=== PATIENT | female | born 1975 | race American Indian/Alaskan Native ===

== ENCOUNTER 2021-08-27 21:14 | Emergency (ER) | payer OTHER ==
[2021-08-28] MEDS ORDERED: hydrALAZINE 25 MG TAB PO ONE (00:58)
[2021-08-28 01:37] LABS: Hematocrit 39.1 % (30.3-42.9); Hemoglobin 12.7 gm/dl (10.1-14.3); Mean Corpuscular HGB Conc 33 % (30-34); Mean Corpuscular Volume 89 fl (79-97); Platelet Count 286 K/mm3 (140-440); Red Blood Count 4.38 M/mm3 (3.65-5.03); Red Cell Distribution Width 14.9 % (13.2-15.2)
[2021-08-28 01:41] LABS: Blood Urea Nitrogen 9 mg/dL (7-17); Hemolysis Index 13
--- NOTE | 2021-08-28 01:42 | XRay Report ---
CHEST 2 VIEWS INDICATION: edema; X3-4 DAYS. COMPARISON: None FINDINGS: SUPPORT DEVICES: None. HEART: Within normal limits. LUNGS/PLEURA: No acute air space or interstitial disease. No pneumothorax. ADDITIONAL FINDINGS: None. IMPRESSION: 1. No acute findings. Signer Name: Sukhi Singh MD Signed: 08/28/2021 1:37 AM Workstation Name: [id number]
[2021-08-28 01:53] LABS: BUN/Creatinine Ratio 18
--- NOTE | 2021-08-28 02:18 | Emergency Department Report ---
ED General Adult HPI - General Chief complaint: Extremity Injury, Lower Stated complaint: NUMBNESS/SWELLING Time Seen by Provider: 08/28/21 00:50 Source: patient Mode of arrival: Ambulatory Limitations: No Limitations - History of Present Illness Initial comments: Patient presents with difficulty breathing. For the last week she has had shortness of breath. She describes orthopnea. She believes that her feet have also been puffy and swollen. The swelling in the feet seem to worsen and then went down. It is now returning. She states she just cannot catch her breath. She has had no significant cough but does feel short of breath. She states that the cough she does have's been minimal and dry. There is no muscle ache or body ache. She has no fevers. She states that her blood pressures also been elevated. She does admit that she had run out of her blood pressure medication. She is not sure if that is contributing. Patient does not eat salt. She is not drinking any more caffeine than usual. She has had no fevers. There has been no vomiting. She does have nausea. She states she just does not feel well. - Related Data Previous Rx's Medication Instructions Recorded Last Taken Type Albuterol Sulfate [Proventil Hfa] 2 puff IH 4XD #1 inh 08/28/21 Unknown Rx Furosemide [Lasix] 20 mg PO DAILY #3 tab 08/28/21 Unknown Rx Allergies Allergy/AdvReac Type Severity Reaction Status Date / Time No Known Allergies Allergy Verified 08/27/21 23:16 ED Review of Systems ROS: Stated complaint: NUMBNESS/SWELLING Other details as noted in HPI Comment: All other systems reviewed and negative Constitutional: denies: fever Eyes: denies: vision change ENT: denies: epistaxis Respiratory: see HPI Cardiovascular: denies: chest pain Endocrine: denies: unexplained weight loss Gastrointestinal: denies: hematemesis Genitourinary: denies: hematuria Musculoskeletal: denies: back pain Skin: denies: rash Neurological: headache Hematological/Lymphatic: denies: easy bruising ED Past Medical Hx - Past Medical History Hx Hypertension: Yes Additional medical history: enlarged heart - Surgical History Past Surgical History?: No Additional Surgical History: tubes tied - Family History Family history: hypertension - Medications Home Medications: Home Medications Medication Instructions Recorded Confirmed Last Taken Type Albuterol Sulfate [Proventil Hfa] 2 puff IH 4XD #1 inh 08/28/21 Unknown Rx Furosemide [Lasix] 20 mg PO DAILY #3 tab 08/28/21 Unknown Rx ED Physical Exam - General Limitations: No Limitations, Other (Pulse ox noted and normal) General appearance: alert, in no apparent distress - Head Head exam: Present: atraumatic, normocephalic - Eye Eye exam: Present: normal appearance, EOMI. Absent: scleral icterus - ENT ENT exam: Present: normal orophraynx, normal external ear exam - Neck Neck exam: Present: normal inspection. Absent: meningismus - Respiratory Respiratory exam: Present: normal lung sounds bilaterally. Absent: respiratory distress - Cardiovascular Cardiovascular Exam: Present: regular rate, normal rhythm. Absent: JVD - GI/Abdominal GI/Abdominal exam: Present: soft. Absent: distended, tenderness - Extremities Exam Extremities exam: Present: normal capillary refill, pedal edema (1+ bilateral). Absent: calf tenderness - Back Exam Back exam: Absent: CVA tenderness (R), CVA tenderness (L) - Neurological Exam Neurological exam: Present: alert, oriented X3, CN II-XII intact, normal gait. Absent: motor sensory deficit - Psychiatric Psychiatric exam: Present: normal affect, normal mood - Skin Skin exam: Present: warm, dry ED Course Vital Signs 08/27/21 08/27/21 23:21 23:27 Temperature 98.5 F Pulse Rate 96 H Blood Pressure 184/125 O2 Sat by Pulse 99 Oximetry - Reevaluation(s) Reevaluation #1: 08/28/21 02:15 Labs have been previously ordered and noted. Reevaluation #2: 08/28/21 02:17 Labs and x-ray have been reviewed. Troponin is pending. Reevaluation #3: 08/28/21 03:34 Ultimately labs were noted and the patient was discharged ED Medical Decision Making - Lab Data Result diagrams: 08/28/21 01:07 08/28/21 01:07 Rhythm strip: Normal sinus rhythm without ectopy. Monitor observe 10 seconds. - Radiology Data Radiology results: report reviewed - Medical Decision Making Patient presents with dependent edema associated with other myriad complaints. She does have some degree of volume overload. She does not have pulmonary edema. She does not appear to have coronavirus or focal pneumonia. There is no STEMI or NSTEMI. There is no evidence of pulse deficit to suggest aortic dissection. We have discussed dietary changes including elevation of the feet, wearing her compressive stockings, and avoiding salt. She will follow-up with her primary care physician for recheck. Critical Care Time: No Critical care attestation.: If time is entered above; I have spent that time in minutes in the direct care of this critically ill patient, excluding procedure time. ED Disposition Clinical Impression: Dependent edema, Shortness of breath Disposition: HOME / SELF CARE / HOMELESS Is pt being admited?: No Condition: Stable Instructions: Shortness of Breath, Adult, [id number], Sequential Compression Device, Edema, [id number] Additional Instructions: Continue to avoid salt. Ice and elevate the feet. Drink water. Return for problems. Follow-up with your regular doctor or the referral doctor for rec heck. Prescriptions: Furosemide [Lasix] 20 mg PO DAILY #3 tab Albuterol Sulfate [Proventil Hfa] 2 puff IH 4XD #1 inh Referrals: PRIMARY MD CARMEN [Referring] - 3-5 Days SAMMY HERRERA MD [Staff Physician] - 3-5 Days
[2021-08-28 04:16] VITALS: BP 177/117
--- NOTE | 2021-08-29 09:55 | Electrocardiograph Report ---
[facility] Test Date: 2021-08-28 Test Time: 03:33:50 Pat Name: HALLEY HURT Department: Room: Gender: F Pharmacy Consultant: NURSE : 1975 Requested By: WHITLEY HOLDEN Order Number: [id number] Reading MD: Jurgen Rushing Measurements Intervals [place] Rate: 97 P: 61 CA: 170 QRS: 33 QRSD: 80 T: 61 QT: 354 QTc: 450 Interpretive Statements Sinus rhythm Probable left atrial enlargement ST elev, probable normal early repol pattern No previous ECG available for comparison Electronically Signed On 08-29-2021 9:54:47 EST by Jurgen Rushing
== END 2021-08-28 05:45 | disposition home or self-care (01) ==
LOC: ED 21:14
DX: R60.0 Localized edema (principal); R06.02 Shortness of breath; I10 Essential (primary) hypertension; Z79.899 Other long term (current) drug therapy
CPT/HCPCS: 36415; 71046; 80048; 83880; 84484; 85027; 93005; 99284